=== PATIENT | male | born 1975 | race Caucasian/White ===

== ENCOUNTER 2017-08-27 20:12 | Inpatient (IN) | payer OTHER ==
[~2017-08-27] VITALS: Ht 180.3 cm; Wt 79.5 kg
[~2017-08-27 20:12] MED LIST: ALPRAZOLAM ER3 MG PO; ALPRAZOLAM2 MG PO; ANDRODERM1 EACH TD; ATARAX,VISTARIL25 M1 PO; ATARAX,VISTARIL25 MG PO; BACTRIM,SEPT1 TABLET PO; Buspar PO; CLONAZEPAM0.5 MG PO; CLONIDINE HCL0.1 MG PO; DEPAKOTE125 MG; DEPAKOTE250 MG PO; DEPAKOTE500 MG PO; DOLOPHINE HCL5 MG PO; Depakote PO; FOLIC ACID1 MG PO; GABAPENTIN300 MG PO; INDERAL40 MG PO; KlonoPIN PO; LEVETIRACETAM500 MG PO; LITHIUM CARBON300 MG PO; LOMOTIL TABLET1 EACH PO; METHADONE; METHADONE HCL40 MG PO; METHADONE PO; METHADONE10 MG PO; MULTI-DAY VITA1 EACH PO; Neurontin PO; OXCARBAZEPINE300 MG PO; PANTOPRAZOLE SO40 MG PO; QUETIAPINE FUM100 MG PO; Remeron PO; SEROQUEL100 MG PO; SEROQUEL200 MG PO; SUBOXONE 8 M1 TABLET SL; SUBOXONE 8 MG-1 EAC2 SL; THIAMINE HCL100 MG PO; THORAZINE50 MG PO; TRAMADOL HCL50 MG PO; TRAZODONE HCL100 MG PO; XANAX1 MG; XANAX1 MG PO; XANAX2 MG PO; ZOFRAN4 MG PO; ZOLOFT100 M1 PO; Zoloft PO
[2017-08-27 20:58] LABS: EOSINOPHIL (%) 0.1 % (0-5); IMMATURE GRANULOCYTE (%) 0.3 % (0.0-0.7); INSTRUMENT ABS NEUTROPHIL CT 7.6 K/uL; LYMPHOCYTE COUNT 2.5 K/uL (1.0-2.8); MCH 28.9 PG (29.0-34.0); MCHC 34.4 G/DL (30.0-36.0); MCV 83.8 FL (86-99); MEAN PLAT.VOLUME 9.2 uM^3 (9.0-12.4); MONOCYTE (%) 5.1 % (3-12); MONOCYTE COUNT 0.6 K/uL (0-0.8); NEUTROPHIL (%) 71.3 % (45-76); NEUTROPHIL COUNT 7.6 K/uL (1.8-6.4); PLATELET COUNT 295 K/uL (156-360); RBC DIS.WIDTH-CV 13.2 % (11.8-14.6); RBC DIS.WIDTH-SD 40.6 % (39-53); RED BLOOD COUNT 5.37 M/uL (4.00-5.50); WHITE BLOOD COUNT 10.7 K/uL (4.1-10.2)
[2017-08-27 21:06] LABS: CHLORIDE 101 mEq/L (99-109); POTASSIUM 3.9 mEq/L (3.7-5.4); SODIUM 138 mEq/L (136-147)
[2017-08-27 21:08] LABS: GLUCOSE 95 mg/dL (70-99)
[2017-08-27 21:09] LABS: ANION GAP 14 MEQ/L (2-14)
[2017-08-27 21:12] LABS: GFR ESTIMATE (CALCULATED) > 59 mL/min/
[2017-08-27 21:13] LABS: UREA NITROGEN (BUN) 12 mg/dL (9-23)
[2017-08-27 21:18] LABS: TROP-I INTERPRETATION NEGATIVE; TROPONIN-I < 0.01 ng/mL (0.0-0.30)
[2017-08-27 22:04] LABS: ADD MIUA? YES; BILIRUBIN NEGATIVE; BLOOD NEGATIVE; COLOR YELLOW ((YELLOW)); GLUCOSE (STRIP) NEGATIVE; KETONES 20; LEUKOCYTES NEGATIVE; NITRITE NEGATIVE; PROTEIN (STRIP) 100; UROBILINOGEN 0.2 MG/DL (0.2-1.0)
[2017-08-27 22:25] LABS: BACTERIA NONE SEEN /HPF; EPITHELIAL CELLS RARE /HPF; HYALINE CASTS 0-5 /LPF; MUCUS 4+ /LPF; WHITE BLOOD CELLS 0-5 /HPF (0-5)
[2017-08-27 23:45] LABS: SERUM ETHYL ALCOHOL < 10 mg/dL
[2017-08-27 23:45] LABS: AMPHETAMINE NEGATIVE (500 ng/mL); BARBITURATES NEGATIVE (200 ng/mL); BENZODIAZEPINES NEGATIVE (150 ng/mL); COCAINE PRESUMPTIVE POSITIVE (150 ng/mL); INTERNAL CONTROLS VALID? YES; METHADONE PRESUMPTIVE POSITIVE (200 ng/mL); METHAMPHETAMINE PRESUMPTIVE POSITIVE (500 ng/mL); OPIATES (MORPHINE) PRESUMPTIVE POSITIVE (100 ng/mL); OXYCODONE PRESUMPTIVE POSITIVE (100 ng/mL); PHENCYCLIDINE NEGATIVE (25 ng/mL); PROPOXYPHENE NEGATIVE (300 ng/mL); THC CANNABINOIDS NEGATIVE (50 ng/mL); TRICYCLIC ANTIDEPRESSANTS PRESUMPTIVE POSITIVE (300 ng/mL)
[2017-08-27 23:46] LABS: ADD MEDTOX COMMENT Y
[2017-08-28] MEDS ORDERED: KLONOPIN1 MG PO (01:45)
[2017-08-28] MEDS ORDERED: DISKETS40 MG PO (01:46)
[2017-08-28] MEDS ORDERED: VISTARIL50 MG PO (01:47)
[2017-08-28 03:10] VITALS: BP 126/73
[2017-08-28 07:39] VITALS: BP 117/74
[2017-08-28 15:24] VITALS: BP 94/52
[2017-08-28 17:42] VITALS: BP 134/79
[2017-08-28 21:36] VITALS: BP 125/76
[2017-08-29 07:40] VITALS: BP 144/64
[2017-08-29] MEDS ORDERED: OXCARBAZEPINE300 MG PO (09:03)
== END 2017-08-29 11:48 | disposition home or self-care (01) | DRG 897 ==
LOC: EME 20:12 → 1WEST 08-28 00:12 → EDOF 08-28 00:12 → 1WEST 08-28 00:12 → ENRESERV 08-28 00:46 → 1WEST 08-28 02:55
PROVIDERS: Physician Assistant Medical
DX: F19.94 Other psychoactive substance use, unspecified with psychoactive substance-induced mood disorder (principal); R45.851 Suicidal ideations; F11.20 Opioid dependence, uncomplicated; F32.9 Major depressive disorder, single episode, unspecified; F13.10 Sedative, hypnotic or anxiolytic abuse, uncomplicated; R56.9 Unspecified convulsions; F60.2 Antisocial personality disorder; J45.909 Unspecified asthma, uncomplicated; Z79.899 Other long term (current) drug therapy
CPT/HCPCS: 71010; 80048; 81003; 84484; 84999; 85025; 90839; 93005; 97150 GO; 99281; 99285; G0480; J2060; J3010; J7030; Q0169; Q0177

== ENCOUNTER 2017-10-15 20:38 | Inpatient (IN) | payer OTHER ==
[~2017-10-15] VITALS: Ht 180.3 cm; Wt 76.5 kg
[~2017-10-15 20:38] MED LIST changes: +DISKETS40 MG PO; +KLONOPIN1 MG PO; +VISTARIL50 MG PO
[2017-10-15] MEDS ORDERED: METHADONE HCL40 MG PO (21:26)
[2017-10-15 22:04] LABS: ALBUMIN 4.3 g/dL (3.2-4.8); CHLORIDE 102 mEq/L (99-109); POTASSIUM 4.1 mEq/L (3.7-5.4); SODIUM 137 mEq/L (136-147)
[2017-10-15 22:06] LABS: GLUCOSE 82 mg/dL (70-99); TOTAL PROTEIN 7.4 g/dL (6.4-8.3)
[2017-10-15 22:07] LABS: HEMATOCRIT 45.6 % (38.0-50.0); HEMOGLOBIN 16.4 G/DL (12.5-16.6); MCH 29.9 PG (29.0-34.0); MCV 83.1 FL (86-99); PLATELET COUNT 246 K/uL (156-360); RBC DIS.WIDTH-CV 11.2 % (11.8-14.6); RBC DIS.WIDTH-SD 33.6 % (39-53); RED BLOOD COUNT 5.49 M/uL (4.00-5.50)
[2017-10-15 22:08] LABS: TOTAL BILIRUBIN 0.3 mg/dL (0.0-1.0)
[2017-10-15 22:10] LABS: ALKALINE PHOSPHATASE 49 IU/L (3-129); GFR ESTIMATE (CALCULATED) > 59 mL/min/ (58.99-99999)
[2017-10-15 22:11] LABS: UREA NITROGEN (BUN) 18 mg/dL (9-23)
[2017-10-15 22:12] LABS: AST (GOT) 20 IU/L (2-34)
[2017-10-15 22:13] LABS: ALT (GPT) 15 IU/L (3-49)
[2017-10-15 22:19] LABS: TROP-I INTERPRETATION NEGATIVE; TROPONIN-I < 0.01 ng/mL (0.0-0.30)
[2017-10-15 22:47] LABS: APPEARANCE CLEAR ((CLEAR)); BILIRUBIN NEGATIVE; BLOOD NEGATIVE; COLOR YELLOW ((YELLOW)); GLUCOSE (STRIP) NEGATIVE; KETONES 5; LEUKOCYTES NEGATIVE; NITRITE NEGATIVE; PROTEIN (STRIP) NEGATIVE; SPECIFIC GRAVITY 1.028 (1.000-1.030); UCUL ADDED? NO; UROBILINOGEN 0.2 MG/DL (0.2-1.0)
[2017-10-15 22:55] LABS: AMPHETAMINE NEGATIVE (500 ng/mL); BARBITURATES NEGATIVE (200 ng/mL); BENZODIAZEPINES NEGATIVE (150 ng/mL); BUPRENORPHINE NEGATIVE (10 ng/mL); COCAINE PRESUMPTIVE POSITIVE (150 ng/mL); METHADONE PRESUMPTIVE POSITIVE (200 ng/mL); METHAMPHETAMINE NEGATIVE (500 ng/mL); OPIATES (MORPHINE) PRESUMPTIVE POSITIVE (100 ng/mL); OXYCODONE NEGATIVE (100 ng/mL); PHENCYCLIDINE NEGATIVE (25 ng/mL); PROPOXYPHENE NEGATIVE (300 ng/mL); THC CANNABINOIDS NEGATIVE (50 ng/mL); TRICYCLIC ANTIDEPRESSANTS NEGATIVE (300 ng/mL)
[2017-10-16 00:40] LABS: TROP-I INTERPRETATION NEGATIVE; TROPONIN-I < 0.01 ng/mL (0.0-0.30)
[2017-10-16 02:48] VITALS: BP 133/76
[2017-10-16 07:34] VITALS: BP 139/79
[2017-10-16 15:28] VITALS: BP 113/63
[2017-10-17 07:41] VITALS: BP 124/59
[2017-10-17 15:20] VITALS: BP 117/65
[2017-10-18 08:24] VITALS: BP 127/59
[2017-10-18 15:25] VITALS: BP 107/62
[2017-10-19 08:08] VITALS: BP 126/70
[2017-10-19 16:52] VITALS: BP 124/59
[2017-10-20 07:36] VITALS: BP 122/82
[2017-10-20] MEDS ORDERED: GABAPENTIN600 MG PO (08:49)
[2017-10-20] MEDS ORDERED: CELEXA20 MG PO (08:49)
== END 2017-10-20 11:37 | disposition home or self-care (01) | DRG 885 ==
LOC: EME 20:38 → 1WEST 10-16 00:28 → EDOF 10-16 00:28 → ENRESERV 10-16 02:13 → 1WEST 10-16 02:37
PROVIDERS: Nurse Practitioner Family
DX: F33.9 Major depressive disorder, recurrent, unspecified (principal); F11.20 Opioid dependence, uncomplicated; R45.851 Suicidal ideations; F13.10 Sedative, hypnotic or anxiolytic abuse, uncomplicated; F14.10 Cocaine abuse, uncomplicated; F19.94 Other psychoactive substance use, unspecified with psychoactive substance-induced mood disorder; F41.8 Other specified anxiety disorders; J45.909 Unspecified asthma, uncomplicated; R56.9 Unspecified convulsions; G43.909 Migraine, unspecified, not intractable, without status migrainosus; F60.9 Personality disorder, unspecified; Z88.5 Allergy status to narcotic agent; Z91.5 Personal history of self-harm
CPT/HCPCS: 71046; 80053; 81003; 84484; 84999; 85027; 90839; 93005; 99281; 99285; J0500; J2765; Q0169; Q0177

== ENCOUNTER 2017-11-08 09:06 | Inpatient (IN) | payer OTHER ==
[~2017-11-08] VITALS: Ht 180.3 cm; Wt 76.7 kg
[~2017-11-08 09:06] MED LIST changes: +CELEXA20 MG PO; +GABAPENTIN600 MG PO; +METHADONE1 MG/1 ML PO
[2017-11-08 09:47] LABS: HEMATOCRIT 44.1 % (38.0-50.0); HEMOGLOBIN 15.8 G/DL (12.5-16.6); MCH 29.3 PG (29.0-34.0); MCHC 35.8 G/DL (30.0-36.0); MCV 81.7 FL (86-99); PLATELET COUNT 230 K/uL (156-360); RBC DIS.WIDTH-CV 11.1 % (11.8-14.6); RBC DIS.WIDTH-SD 32.7 % (39-53); WHITE BLOOD COUNT 7.3 K/uL (4.1-10.2)
[2017-11-08 10:17] LABS: APPEARANCE CLOUDY ((CLEAR)); BILIRUBIN NEGATIVE; BLOOD NEGATIVE; COLOR YELLOW ((YELLOW)); GLUCOSE (STRIP) NEGATIVE; KETONES NEGATIVE; LEUKOCYTES NEGATIVE; NITRITE NEGATIVE; PROTEIN (STRIP) NEGATIVE; SPECIFIC GRAVITY 1.019 (1.000-1.030)
[2017-11-08 10:23] LABS: CHLORIDE 100 mEq/L (99-109); SODIUM 137 mEq/L (136-147)
[2017-11-08 10:24] LABS: GLUCOSE 108 mg/dL (70-99)
[2017-11-08 10:27] LABS: SERUM ETHYL ALCOHOL < 10 mg/dL
[2017-11-08 10:28] LABS: CREATININE 0.9 mg/dL (0.6-1.3); GFR ESTIMATE (CALCULATED) > 59 mL/min/ (58.99-99999)
[2017-11-08 10:29] LABS: COCAINE PRESUMPTIVE POSITIVE (150 ng/mL); METHAMPHETAMINE NEGATIVE (500 ng/mL); OPIATES (MORPHINE) NEGATIVE (100 ng/mL); PHENCYCLIDINE NEGATIVE (25 ng/mL); THC CANNABINOIDS NEGATIVE (50 ng/mL)
[2017-11-08 10:29] LABS: UREA NITROGEN (BUN) 16 mg/dL (9-23)
[2017-11-08 10:30] LABS: AMPHETAMINE NEGATIVE (500 ng/mL); BARBITURATES NEGATIVE (200 ng/mL); BENZODIAZEPINES NEGATIVE (150 ng/mL); BUPRENORPHINE NEGATIVE (10 ng/mL); METHADONE PRESUMPTIVE POSITIVE (200 ng/mL); OXYCODONE NEGATIVE (100 ng/mL); PROPOXYPHENE NEGATIVE (300 ng/mL); TRICYCLIC ANTIDEPRESSANTS NEGATIVE (300 ng/mL)
[2017-11-08 10:34] LABS: AMORPHOUS PHOSPHATE CRYSTALS 3+; BACTERIA NONE SEEN /HPF; EPITHELIAL CELLS RARE /HPF; MUCUS RARE /LPF; RED BLOOD CELLS NONE SEEN /HPF (0-5); UCUL ADDED? NO; WHITE BLOOD CELLS RARE /HPF (0-5)
[2017-11-08 13:03] VITALS: BP 123/71
[2017-11-08 15:40] VITALS: BP 121/56
[2017-11-09 08:00] VITALS: BP 140/78
[2017-11-09 15:19] VITALS: BP 118/61
[2017-11-10 08:10] VITALS: BP 109/59
[2017-11-10 15:34] VITALS: BP 101/59
[2017-11-11 07:51] VITALS: BP 126/73
[2017-11-11 15:45] VITALS: BP 121/60
[2017-11-12 07:31] VITALS: BP 106/60
[2017-11-12 15:37] VITALS: BP 128/60
[2017-11-13] MEDS ORDERED: CITALOPRAM HBR20 MG PO (08:25)
[2017-11-13] MEDS ORDERED: GABAPENTIN600 MG PO (08:25)
[2017-11-13 09:44] VITALS: BP 125/81
== END 2017-11-13 10:41 | disposition other institution (70) | DRG 880 ==
LOC: EME 09:06 → EDOF 12:21 → 1WEST 12:21 → ENRESERV 12:32 → 1WEST 12:44
PROVIDERS: Emergency Medicine
DX: F41.8 Other specified anxiety disorders (principal); F11.20 Opioid dependence, uncomplicated; F19.94 Other psychoactive substance use, unspecified with psychoactive substance-induced mood disorder; F13.10 Sedative, hypnotic or anxiolytic abuse, uncomplicated; F14.10 Cocaine abuse, uncomplicated; F60.2 Antisocial personality disorder; R45.851 Suicidal ideations; Z59.0 Homelessness; J45.909 Unspecified asthma, uncomplicated
CPT/HCPCS: 80048; 81003; 84999; 85027; 90839; 97150 GO; 97165 GO; 99281; 99283; G0480; Q0169; Q0177